=== PATIENT | female | born 1980 | race Caucasian/White ===

== ENCOUNTER → 2016-11-19 | Outpatient (CLI) | payer BC | LOC: FIMAGING 07:50 | PROVIDERS: ATTEND Registered Nurse | DX: O09.513 Supervision of elderly primigravida, third trimester (principal); O24.410 Gestational diabetes mellitus in pregnancy, diet controlled; Z3A.31 31 weeks gestation of pregnancy ==

== ENCOUNTER → 2016-12-19 | Outpatient (CLI) | payer BC | LOC: FIMAGING 08:51 | PROVIDERS: ATTEND Registered Nurse | DX: O09.513 Supervision of elderly primigravida, third trimester (principal); O24.419 Gestational diabetes mellitus in pregnancy, unspecified control; Z3A.36 36 weeks gestation of pregnancy ==